=== PATIENT | male | born 1975 | race Caucasian/White ===

== ENCOUNTER 2023-09-19 10:46 | Emergency (ER) | payer SELFPAY ==
[2023-09-19] MEDS ORDERED: Ketorolac Tromethamine 30 MG (1 mL) VIAL ONE (11:30)
== END 2023-09-19 12:30 | disposition home or self-care (01) ==
LOC: MADERS 10:46
DX: M77.8 Other enthesopathies, not elsewhere classified (principal); Z87.891 Personal history of nicotine dependence
CPT/HCPCS: 72125; 96372; J1885